=== PATIENT | male | born 1995 | race African-American/Black ===

== ENCOUNTER 2024-01-16 22:46 | Emergency (ER) | payer OTHER ==
[2024-01-16 22:55] VITALS: RESP 16; BMI 22.7
[2024-01-16 23:21] VITALS: BP 114/62; PULSE 55; TEMP 98.6
== END 2024-01-16 23:37 | disposition home or self-care (01) ==
LOC: FER 22:46
DX: R68.83 Chills (without fever) (principal); L29.9 Pruritus, unspecified; B34.9 Viral infection, unspecified
CPT/HCPCS: 99283-25